=== PATIENT | female | born 1965 | race Caucasian/White ===

== ENCOUNTER → 2018-06-12 09:52 | Outpatient (CLI) | payer OTHER | END | disposition home or self-care (01) | LOC: D.RT 09:52 | DX: Z02.71 Encounter for disability determination (principal) ==

== ENCOUNTER 2019-07-28 15:32 | Emergency (ER) | payer MEDICAID ==
[~2019-07-28] VITALS: Ht 160 cm; Wt 50.9 kg
[2019-07-28 15:42] VITALS: BP 156/95; Ht 160 cm; Wt 50.9 kg
[2019-07-28] MEDS ORDERED: ALBUTEROL SULF8.5 GM INH (15:44)
[2019-07-28] MEDS ORDERED: KLONOPIN1 MG PO (15:44)
[2019-07-28] MEDS ORDERED: BUSPAR 15 MG TA15 MG PO (15:44)
[2019-07-28] MEDS ORDERED: MOBIC7.5 MG PO (15:45)
[2019-07-28] MEDS ORDERED: DILTIAZEM 24HR180 M4 PO (15:46)
[2019-07-28] MEDS ORDERED: ADVAIR HFA 230-12 GM INH (15:46)
[2019-07-28] MEDS ORDERED: ROBAXIN500 MG PO (15:47)
[2019-07-28] MEDS ORDERED: ATROVENT 0.02%2.5 ML UPD (15:47)
[2019-07-28] MEDS ORDERED: MACROBID100 MG PO (15:48)
[2019-07-28] MEDS ORDERED: MUPIROCIN22 GM TOPICAL (15:48)
[2019-07-28 16:16] LABS: EOSINOPHILS 0.8 % (0-7); HEMATOCRIT 36.8 % (36.0-48.0); HEMOGLOBIN 12.9 g/dL (12-16); IMMATURE GRANULOCYTES 0.2 % (0-5); LYMPHOCYTES 21.3 % (15-50); MCH 30.5 pg (26.0-34.0); MCHC 35.1 g/dL (31.0-37.0); MEAN PLATELET VOLUME 8.6 fL (7.4-10.4); NEUTROPHILS 58.7 % (40-80); PLATELET COUNT 224 10x3/uL (130-400); RBC 4.23 10x6/uL (4.00-5.40); RDW 16.3 % (11.5-14.5); WBC 4.9 10x3/uL (4.8-10.8)
[2019-07-28 16:30] LABS: ALBUMIN 3.5 g/dL (3.4-5.0); ALKALINE PHOSPHATASE 86 U/L (46-116); ALT (SGPT) 17 U/L (10-68); BILIRUBIN - TOTAL 0.44 mg/dL (0.2-1.3); CALC OSMOLALITY 263 mosm/kg (275-300); CALCIUM 8.8 mg/dL (8.5-10.1); CARBON DIOXIDE 28.6 mmol/L (21.0-32.0); CHLORIDE - SERUM 96 mmol/L (98-107); CREATININE - SERUM 0.5 mg/dL (0.6-1.3); GLUCOSE 90 mg/dL (74-106); POTASSIUM - SERUM 4.4 mmol/L (3.5-5.1); PROTEIN - SERUM 6.7 g/dL (6.4-8.2); SODIUM 133 mmol/L (136-145); UREA NITROGEN 8 mg/dL (7-18); eGFR NON AFRICAN AMERICAN > 90 mL/min (90-120)
[2019-07-28 16:39] LABS: APPEARANCE CLEAR (CLEAR); BILIRUBIN NEGATIVE (NEGATIVE); COLOR YELLOW (YELLOW); GLUCOSE NEGATIVE (NEGATIVE); KETONE NEGATIVE (NEGATIVE); NITRITE NEGATIVE (NEGATIVE); PROTEIN NEGATIVE (NEGATIVE); UROBILINOGEN NORMAL (NORMAL)
[2019-07-28 16:40] LABS: BACTERIA FEW /hpf (NEGATIVE); EPITHELIAL CELLS 0-5 /hpf (0-5); RED CELLS - URINE OCC /hpf (0-5); WHITE CELLS - URINE 0-5 /hpf (NEGATIVE)
== END 2019-07-28 18:43 | disposition home or self-care (01) ==
LOC: D.ER 15:32
PROVIDERS: Family Medicine
DX: N39.0 Urinary tract infection, site not specified (principal); I10 Essential (primary) hypertension

== ENCOUNTER 2019-08-15 08:00 | Outpatient (CLI) | payer MEDICAID ==
[2019-07-28 15:42] VITALS: BMI 19.8
[~2019-08-15 08:00] MED LIST: ADVAIR HFA 230-12 GM INH; ALBUTEROL SULF8.5 GM INH; ATROVENT 0.02%2.5 ML UPD; BUSPAR 15 MG TA15 MG PO; DILTIAZEM 24HR180 M4 PO; KLONOPIN1 MG PO; MACROBID100 MG PO; MOBIC7.5 MG PO; MUPIROCIN22 GM TOPICAL; ROBAXIN500 MG PO
== END 2019-08-15 23:59 | disposition home or self-care (01) ==
LOC: D.MAMMO 08:00
PROVIDERS: ATTEND Surgery
DX: N63.22 Unspecified lump in the left breast, upper inner quadrant (principal)

== ENCOUNTER 2020-04-02 19:39 | Emergency (ER) | payer MEDICAID ==
[~2020-04-02] VITALS: Ht 160 cm; Wt 54.1 kg
[2020-04-02 20:01] VITALS: Ht 160 cm; Wt 54.1 kg
[2020-04-02] MEDS ORDERED: DILTIAZEM 24HR240 M4 PO (20:03)
[2020-04-02] MEDS ORDERED: DOXYCYCLINE HY100 M2 PO (20:04)
[2020-04-02] MEDS ORDERED: EFFEXOR37.5 MG PO (20:05)
[2020-04-02 20:37] LABS: BASOPHILS 0.9 % (0-2); EOSINOPHILS 1.1 % (0-7); HEMATOCRIT 49.7 % (36.0-48.0); HEMOGLOBIN 17.6 g/dL (12-16); IMMATURE GRANULOCYTES 0.2 % (0-5); LYMPHOCYTES 27.4 % (15-50); MCH 33.6 pg (26.0-34.0); MCHC 35.4 g/dL (31.0-37.0); MCV 94.8 fL (80.0-100.0); MONOCYTES 10.3 % (2-11); NEUTROPHILS 60.1 % (40-80); PLATELET COUNT 215 10x3/uL (130-400); RBC 5.24 10x6/uL (4.00-5.40); RDW 13.9 % (11.5-14.5); WBC 8.1 10x3/uL (4.8-10.8)
[2020-04-02 20:56] LABS: CALC OSMOLALITY 261 mosm/kg (275-300); CALCIUM 9.3 mg/dL (8.5-10.1); CARBON DIOXIDE 29.4 mmol/L (21.0-32.0); CHLORIDE - SERUM 98 mmol/L (98-107); CREATININE - SERUM 0.7 mg/dL (0.6-1.3); GLUCOSE 86 mg/dL (74-106); INR 0.98 (0.85-1.17); POTASSIUM - SERUM 4.3 mmol/L (3.5-5.1); PROTIME 12.9 SECONDS (11.6-15.0); SODIUM 132 mmol/L (136-145); UREA NITROGEN 6 mg/dL (7-18); eGFR NON AFRICAN AMERICAN > 90 mL/min (90-120)
[2020-04-02 21:12] LABS: ALKALINE PHOSPHATASE 85 U/L (30-120); ALT (SGPT) 30 U/L (10-68); BILIRUBIN - TOTAL 0.34 mg/dL (0.2-1.3); CKMB 1.9 U/L (0.0-3.6); CREATINE KINASE 72 UL (21-215); PRO BNP 147 pg/mL (0-125); PROTEIN - SERUM 7.5 g/dL (6.4-8.2); TROPONIN-I < 0.017 ng/mL (0.000-0.060)
[2020-04-02 21:48] LABS: BILIRUBIN NEGATIVE (NEGATIVE); GLUCOSE NEGATIVE (NEGATIVE); KETONE NEGATIVE (NEGATIVE); NITRITE NEGATIVE (NEGATIVE); UROBILINOGEN NORMAL (NORMAL)
[2020-04-02] MEDS ORDERED: MUCINEX DM ER1 EAC1 PO (22:15)
[2020-04-02] MEDS ORDERED: TESSALON PERLE100 MG PO (22:17)
[2020-04-02 22:37] VITALS: BP 186/102
== END 2020-04-02 22:37 | disposition home or self-care (01) ==
LOC: D.ER 19:39
PROVIDERS: Family Medicine
DX: J06.9 Acute upper respiratory infection, unspecified (principal); R05 Cough; J44.9 Chronic obstructive pulmonary disease, unspecified; Z72.0 Tobacco use; I10 Essential (primary) hypertension; R06.02 Shortness of breath

== ENCOUNTER 2020-06-05 05:30 | Inpatient (IN) | payer MEDICAID ==
[~2020-06-05] VITALS: Ht 160 cm; Wt 51.4 kg
[2020-06-05] VITALS (7 sets, daily range): BP systolic 133–174; BP diastolic 55–94; Ht 160 cm; Wt 51.4 kg
[~2020-06-05 05:30] MED LIST changes: +DILTIAZEM 24HR240 M4 PO; +DOXYCYCLINE HY100 M2 PO; +EFFEXOR37.5 MG PO; +MUCINEX DM ER1 EAC1 PO; +TESSALON PERLE100 MG PO
[2020-06-05 06:29] LABS: BASOPHILS 0.8 % (0-2); EOSINOPHILS 0.8 % (0-7); HEMATOCRIT 48.2 % (36.0-48.0); HEMOGLOBIN 16.7 g/dL (12-16); IMMATURE GRANULOCYTES 0.2 % (0-5); LYMPHOCYTES 25.9 % (15-50); MCH 32.6 pg (26.0-34.0); MCHC 34.6 g/dL (31.0-37.0); MCV 94.1 fL (80.0-100.0); MEAN PLATELET VOLUME 9.3 fL (7.4-10.4); NEUTROPHILS 65.3 % (40-80); PLATELET COUNT 203 10x3/uL (130-400); RBC 5.12 10x6/uL (4.00-5.40); RDW 14.1 % (11.5-14.5); WBC 5.1 10x3/uL (4.8-10.8)
[2020-06-05 07:01] LABS: INR 0.87 (0.85-1.17); PROTIME 11.8 SECONDS (11.6-15.0)
[2020-06-05 07:02] LABS: APTT 26.5 SECONDS (22.8-39.4)
[2020-06-05 07:03] LABS: CALC OSMOLALITY 270 mosm/kg (275-300); CARBON DIOXIDE 31.7 mmol/L (21.0-32.0); CHLORIDE - SERUM 99 mmol/L (98-107); CREATININE - SERUM 0.7 mg/dL (0.6-1.3); D-DIMER-QUANTITATIVE 0.35 ug/mLFEU (0.20-0.54); GLUCOSE 95 mg/dL (74-106); POTASSIUM - SERUM 4.4 mmol/L (3.5-5.1); SODIUM 136 mmol/L (136-145); UREA NITROGEN 10 mg/dL (7-18); eGFR NON AFRICAN AMERICAN > 90 mL/min (90-120)
[2020-06-05 07:18] LABS: ALBUMIN 3.7 g/dL (3.4-5.0); ALKALINE PHOSPHATASE 82 U/L (30-120); ALT (SGPT) 25 U/L (10-68); BILIRUBIN - TOTAL 0.34 mg/dL (0.2-1.3); CKMB 2.4 U/L (0.0-3.6); CREATINE KINASE 99 UL (21-215); PROTEIN - SERUM 7.2 g/dL (6.4-8.2)
[2020-06-05 07:19] LABS: TROPONIN-I < 0.017 ng/mL (0.000-0.060)
--- NOTE | 2020-06-05 07:20 | NUR ---
PT SITTING UP ON BED. PT FAMILY MEMBER AT BEDSIDE. NO S/S OF ACUTE DISTRESS NOTED.
--- NOTE | 2020-06-05 08:11 | NUR ---
RT AT BEDSIDE FOR ABG
--- NOTE | 2020-06-05 11:23 | NUR ---
RECEIVED REPORT FROM HAYDE IN THE ED. PATIENT TO UNIT SOON.
--- NOTE | 2020-06-05 12:00 | NUR ---
PATIENT ARRIVED TO UNIT VIA WHEELCHAIR IN NO ACUTE DISTRESS. PATIENT ALERT/ORIENTED, AND AMBULATORY. PAITENT WITH 20 GAUGE IV TO LEFT FOREARM. ABLE TO ANSWER ALL QUESTIONS APPROPRIATELY. CALL LIGHT WIHTIN REACH. DENIES NEEDS. ICE WATER PROVIDED. IV AZITHROMCIN INFUSING AT THIS TIME.
[2020-06-05] MEDS ORDERED: TAMOXIFEN CITRA20 MG PO (12:22)
[2020-06-05] MEDS ORDERED: REMERON30 MG PO (12:24)
[2020-06-05] MEDS ORDERED: CYCLOBENZAPRINE10 MG PO (12:25)
[2020-06-05 13:18] LABS: CKMB 1.7 U/L (0.0-3.6); CREATINE KINASE 65 UL (21-215); TROPONIN-I < 0.017 ng/mL (0.000-0.060)
--- NOTE | 2020-06-05 17:09 | NUR ---
TELEMETRY APPLIED. NO DISTRESS. CONVERSING ON CELLPHONE.
[2020-06-05 21:23] LABS: CKMB 1.4 U/L (0.0-3.6); CREATINE KINASE 58 UL (21-215)
[2020-06-05 21:38] LABS: TROPONIN-I < 0.017 ng/mL (0.000-0.060)
[2020-06-06 01:54] LABS: BASOPHILS 0.2 % (0-2); EOSINOPHILS 0 % (0-7); HEMATOCRIT 41.6 % (36.0-48.0); HEMOGLOBIN 14.1 g/dL (12-16); IMMATURE GRANULOCYTES 0.2 % (0-5); LYMPHOCYTES 14.3 % (15-50); MCH 31.8 pg (26.0-34.0); MCHC 33.9 g/dL (31.0-37.0); MCV 93.9 fL (80.0-100.0); MEAN PLATELET VOLUME 8.9 fL (7.4-10.4); MONOCYTES 6.6 % (2-11); NEUTROPHILS 78.7 % (40-80); PLATELET COUNT 185 10x3/uL (130-400); RBC 4.43 10x6/uL (4.00-5.40); RDW 13.7 % (11.5-14.5); WBC 5.8 10x3/uL (4.8-10.8)
[2020-06-06 02:22] LABS: ALBUMIN 3.1 g/dL (3.4-5.0); ALKALINE PHOSPHATASE 62 U/L (30-120); ALT (SGPT) 19 U/L (10-68); BILIRUBIN - TOTAL 0.34 mg/dL (0.2-1.3); CALCIUM 8.8 mg/dL (8.5-10.1); CARBON DIOXIDE 31.4 mmol/L (21.0-32.0); CHLORIDE - SERUM 102 mmol/L (98-107); CKMB 1.1 U/L (0.0-3.6); CREATINE KINASE 46 UL (21-215); CREATININE - SERUM 0.6 mg/dL (0.6-1.3); MAGNESIUM - SERUM 1.9 mg/dL (1.8-2.4); POTASSIUM - SERUM 4.1 mmol/L (3.5-5.1); PROTEIN - SERUM 6.1 g/dL (6.4-8.2); SODIUM 139 mmol/L (136-145); UREA NITROGEN 9 mg/dL (7-18); eGFR NON AFRICAN AMERICAN > 90 mL/min (90-120)
[2020-06-06 02:23] LABS: CALC OSMOLALITY 279 mosm/kg (275-300); GLUCOSE 151 mg/dL (74-106); TROPONIN-I < 0.017 ng/mL (0.000-0.060)
[2020-06-06 04:32] VITALS: BP 178/86
[2020-06-06 09:08] VITALS: BP 163/78
--- NOTE | 2020-06-06 09:26 | NUR ---
AM MEDS GIVEN AT THIS TIME. INFORMED PT THAT SHE WOULD BE MOVED TO A DIFFERENT ROOM. PT UPSET BECAUSE SHE STATES THAT NOTHING WAS DONE FOR HER LAST NIGHT. WANTS TO GO HOME " WHERE SHE CAN BE BETTER CARE."
[2020-06-06] MEDS ORDERED: AZITHROMYCIN500 MG PO (10:58)
[2020-06-06] MEDS ORDERED: PREDNISONE10 MG PO (11:00)
--- NOTE | 2020-06-06 11:05 | NUR ---
[facility]
[2020-06-06] MEDS ORDERED: NICODERM CQ1 EAC3 TOPICAL (11:22)
--- NOTE | 2020-06-06 12:34 | NUR ---
PT AWAKE AND ORIENTED, I/V REMOVED TIP INTACT. TELEMETRY D/C. STATES HER FAMILY WILL BE HERE TO PICK HER UP WITHIN AN HOUR.
--- NOTE | 2020-06-06 13:08 | NUR ---
PT AWAKE AND OREINTED, ESCORTED OUT VIA WHEELCHAIR TO POV, FRIEND DRIVING.
== END 2020-06-06 13:08 | disposition home or self-care (01) | DRG 192 ==
LOC: D.ER 05:30 → D.MS 10:01 → D.M2 11:16
PROVIDERS: Family Medicine; ADMIT Emergency Medicine; ATTEND Emergency Medicine
DX: J44.1 Chronic obstructive pulmonary disease with (acute) exacerbation (principal); I10 Essential (primary) hypertension

== ENCOUNTER 2021-03-01 17:37 | Inpatient (IN) | payer BC ==
[~2021-03-01] VITALS: Ht 160 cm; Wt 60.5 kg
[~2021-03-01 17:37] MED LIST changes: +ATIVAN1 MG PO; +AZITHROMYCIN500 MG PO; +COLACE100 MG PO; +CYCLOBENZAPRINE10 MG PO; +FLUTICASONE PRO16 GM NASAL; +MUCINEX600 MG PO; +NICODERM CQ1 EAC3 TOPICAL; +PREDNISONE10 MG PO; +REMERON30 MG PO; +TAMOXIFEN CITRA20 MG PO
--- NOTE | 2021-03-01 19:30 | NUR ---
PT RECEIVED TO ROOM 2100 VIA WC AWAKE, ALERT. S/O AT BEDSIDE. NO DISTRESS NOTED. O2 SAT 90% ON RA PLACED ON 2L NC O2 SAT 93% ON 2 L NC. PT DENIES ANY NEEDS WILL CONTINUE TO MONITOR
--- NOTE | 2021-03-01 19:45 | NUR ---
20 GAUGE PIV PLACED TO LEFT FA X 1 STICK, PT TOLERATED WELL NO DISTRESS NOTED. WILL CONTINUE TO MONITOR
[2021-03-01] MEDS ORDERED: TESSALON PERLE100 MG PO (20:12)
[2021-03-01] MEDS ORDERED: ZYRTEC10 MG PO (20:12)
[2021-03-01] MEDS ORDERED: KLONOPIN1 MG PO ×2 (20:14→20:16)
[2021-03-01] MEDS ORDERED: BUSPIRONE HCL30 MG PO (20:14)
[2021-03-01] MEDS ORDERED: IPRAT-ALBUT 0.5-3 ML UPD (20:15)
[2021-03-01] MEDS ORDERED: METOPROLOL TART25 MG PO (20:19)
[2021-03-01] MEDS ORDERED: SPIRIVA RESPIMAT4 GM INH (20:20)
[2021-03-01] MEDS ORDERED: NICODERM CQ1 EAC2 TOPICAL (20:22)
--- NOTE | 2021-03-01 20:35 | NUR ---
PULM CONSULT CALLED TO DR LOUISE HE WILL SEE PT TOMORROW
[2021-03-01 20:52] VITALS: Ht 160 cm; Wt 60.5 kg
[2021-03-01 21:19] VITALS: BP 196/99
[2021-03-01 22:40] LABS: ALBUMIN 3.4 g/dL (3.4-5.0); ALKALINE PHOSPHATASE 74 U/L (30-120); ALT (SGPT) 22 U/L (10-68); BILIRUBIN - TOTAL 0.28 mg/dL (0.2-1.3); CALC OSMOLALITY 261 mosm/kg (275-300); CALCIUM 8.5 mg/dL (8.5-10.1); CARBON DIOXIDE 32.1 mmol/L (21.0-32.0); CHLORIDE - SERUM 96 mmol/L (98-107); CREATININE - SERUM 0.7 mg/dL (0.6-1.3); GLUCOSE 88 mg/dL (74-106); MAGNESIUM - SERUM 1.7 mg/dL (1.8-2.4); POTASSIUM - SERUM 3.9 mmol/L (3.5-5.1); PROTEIN - SERUM 6.5 g/dL (6.4-8.2); SODIUM 132 mmol/L (136-145); UREA NITROGEN 8 mg/dL (7-18); eGFR NON AFRICAN AMERICAN > 90 mL/min (90-120)
[2021-03-02] VITALS (7 sets, daily range): BP systolic 123–171; BP diastolic 62–85
[2021-03-02 05:11] LABS: BASOPHILS 2.1 % (0-2); EOSINOPHILS 2.1 % (0-7); HEMATOCRIT 43.2 % (36.0-48.0); HEMOGLOBIN 14.9 g/dL (12-16); IMMATURE GRANULOCYTES 0.2 % (0-5); LYMPHOCYTE ABS# 2.12 10x3/uL (1.18-3.74); LYMPHOCYTES 41.2 % (15-50); MCH 32.3 pg (26.0-34.0); MCHC 34.5 g/dL (31.0-37.0); MCV 93.7 fL (80.0-100.0); MEAN PLATELET VOLUME 9.3 fL (7.4-10.4); MONOCYTES 9.9 % (2-11); NEUTROPHIL ABS# 2.29 10x3/uL (1.56-6.13); NEUTROPHILS 44.5 % (40-80); PLATELET COUNT 201 10x3/uL (130-400); RBC 4.61 10x6/uL (4.00-5.40); RDW 13.4 % (11.5-14.5); WBC 5.2 10x3/uL (4.8-10.8)
[2021-03-02 05:24] LABS: CALC OSMOLALITY 271 mosm/kg (275-300); CALCIUM 8.8 mg/dL (8.5-10.1); CARBON DIOXIDE 30.3 mmol/L (21.0-32.0); CHLORIDE - SERUM 101 mmol/L (98-107); CREATININE - SERUM 0.6 mg/dL (0.6-1.3); GLUCOSE 89 mg/dL (74-106); PHOSPHOROUS 4.4 mg/dL (2.5-4.9); POTASSIUM - SERUM 4.3 mmol/L (3.5-5.1); SODIUM 137 mmol/L (136-145); eGFR NON AFRICAN AMERICAN > 90 mL/min (90-120)
[2021-03-02 05:28] LABS: MAGNESIUM - SERUM 2.2 mg/dL (1.8-2.4); UREA NITROGEN 11 mg/dL (7-18)
--- NOTE | 2021-03-02 07:40 | NUR ---
Sitting up in bed, awake/alert/oriented, T/R self ad tramaine, cont of B/B with BRPs per self ad tramaine, denies pain at this time, call light/phone/water within reach, no s/s of acute distress observed.
[2021-03-02 13:35] LABS: BILIRUBIN NEGATIVE (NEGATIVE); KETONE NEGATIVE (NEGATIVE); NITRITE NEGATIVE (NEGATIVE); UROBILINOGEN NORMAL mg/dL (< 2)
[2021-03-03 05:09] VITALS: BP 126/65
--- NOTE | 2021-03-03 07:00 | NUR ---
Sitting up in bed, awake/alert/oriented, T/R self ad tramaine, cont of B/B with BRPs per self ad tramaine, denies pain/other discomfort at this time, call light/phone/water within reach, no s/s of acute distress observed.
[2021-03-03 07:07] LABS: EOSINOPHILS 0.5 % (0-7); HEMATOCRIT 44.5 % (36.0-48.0); LYMPHOCYTE ABS# 0.75 10x3/uL (1.18-3.74); LYMPHOCYTES 17.9 % (15-50); MCHC 33.7 g/dL (31.0-37.0); MCV 94.9 fL (80.0-100.0); MEAN PLATELET VOLUME 9.3 fL (7.4-10.4); MONOCYTES 0.7 % (2-11); NEUTROPHIL ABS# 3.36 10x3/uL (1.56-6.13); NEUTROPHILS 79.9 % (40-80); PLATELET COUNT 191 10x3/uL (130-400); RBC 4.69 10x6/uL (4.00-5.40); RDW 13.3 % (11.5-14.5); WBC 4.2 10x3/uL (4.8-10.8)
[2021-03-03 07:27] LABS: CALC OSMOLALITY 271 mosm/kg (275-300); CALCIUM 8.9 mg/dL (8.5-10.1); CARBON DIOXIDE 27.4 mmol/L (21.0-32.0); CHLORIDE - SERUM 101 mmol/L (98-107); CREATININE - SERUM 0.7 mg/dL (0.6-1.3); MAGNESIUM - SERUM 1.8 mg/dL (1.8-2.4); POTASSIUM - SERUM 4.2 mmol/L (3.5-5.1); SODIUM 135 mmol/L (136-145); UREA NITROGEN 10 mg/dL (7-18); eGFR NON AFRICAN AMERICAN > 90 mL/min (90-120)
[2021-03-03 07:28] LABS: GLUCOSE 159 mg/dL (74-106); PHOSPHOROUS 1.8 mg/dL (2.5-4.9)
[2021-03-03 08:00] VITALS: BP 151/85
[2021-03-03 11:07] VITALS: BP 161/80
[2021-03-03 16:04] VITALS: BP 155/75
--- NOTE | 2021-03-03 18:55 | NUR ---
PT SITTINUP IN BED REQUESTS PRN KLONOPIN, REPORTS THE STEROIDS SHE IS ON ARE MAKING HER MORE ANXIOUS AND THAT SHE JUST HAD HER BREATHING TREATMENT AND THIS MADE HER MORE ANXIOUS DUE TO THE STEROIDS IN IT ALSO. DENIES ANY OTHER NEEDS OR ISSUES. NO DISTRESS NOTED. PRN KLONOPIN AND TYLENOL GIVEN PER PT REPORTS OF WHITNEY AFTER UD TREATMENT. WILL COTNINEU TO MONITOR
[2021-03-03 20:00] VITALS: BP 127/56
--- NOTE | 2021-03-03 22:50 | NUR ---
pt received to room 2139 via er stretcher accompanied by ED nurse, pt awake alert, SOB reports generalized weakness, fatigue and just not feeling well/ O2 sat 93-94% on 4 L NC. PIV to bilat hands infusing. VSS, afebrile call light in reach will continue to monitor
[2021-03-03 23:24] VITALS: BP 120/58
[2021-03-04 04:00] VITALS: BP 136/71
--- NOTE | 2021-03-04 06:30 | NUR ---
RECEIVED BEDSIDE REPORT, PATIENT AWAKE AND ALERT, TAKING BREATHING TREATMENT. NO CURRENT PAIN OR DISTRESS ACKNOWLEDGED.
[2021-03-04 07:04] LABS: BASOPHILS 0.1 % (0-2); EOSINOPHILS 0.1 % (0-7); HEMATOCRIT 43.8 % (36.0-48.0); HEMOGLOBIN 14.6 g/dL (12-16); IMMATURE GRANULOCYTES 0.4 % (0-5); LYMPHOCYTES 9.1 % (15-50); MCH 31.9 pg (26.0-34.0); MCHC 33.3 g/dL (31.0-37.0); MCV 95.6 fL (80.0-100.0); MEAN PLATELET VOLUME 9.7 fL (7.4-10.4); MONOCYTES 6.7 % (2-11); NEUTROPHIL ABS# 13.71 10x3/uL (1.56-6.13); NEUTROPHILS 83.6 % (40-80); PLATELET COUNT 210 10x3/uL (130-400); RBC 4.58 10x6/uL (4.00-5.40); RDW 13.7 % (11.5-14.5); WBC 16.4 10x3/uL (4.8-10.8)
[2021-03-04 07:26] VITALS: BP 146/75
--- NOTE | 2021-03-04 07:30 | NUR ---
RESIDENT SITTING UP IN BED. RESP EVEN AND UNLABORED. O2 95 ON RA. LUNG SOUNDS LOWER LEFT LOBE WITH SLIGHT CRACKLES. NO VOICED COMPLAINTS OF PAIN OR DISTRESS. NO COUGH NOTED. RESIDENT STATED SHE IS READY TO GO HOME. WILL CONTINUE TO MONITOR.
[2021-03-04 07:32] LABS: CALC OSMOLALITY 278 mosm/kg (275-300); CALCIUM 9.1 mg/dL (8.5-10.1); CARBON DIOXIDE 28.8 mmol/L (21.0-32.0); CHLORIDE - SERUM 102 mmol/L (98-107); CREATININE - SERUM 0.7 mg/dL (0.6-1.3); GLUCOSE 113 mg/dL (74-106); MAGNESIUM - SERUM 1.9 mg/dL (1.8-2.4); PHOSPHOROUS 3.3 mg/dL (2.5-4.9); POTASSIUM - SERUM 4.2 mmol/L (3.5-5.1); SODIUM 139 mmol/L (136-145); UREA NITROGEN 12 mg/dL (7-18); eGFR NON AFRICAN AMERICAN > 90 mL/min (90-120)
[2021-03-04 08:13] LABS: IMMUNOGLOBULIN A 153 mg/dL (87-352); IMMUNOGLOBULIN G 787 mg/dL (586-1602)
[2021-03-04] MEDS ORDERED: LEVOFLOXACIN500 MG PO (11:03)
[2021-03-04] MEDS ORDERED: SINGULAIR10 MG PO (11:05)
[2021-03-04] MEDS ORDERED: DALIRESP250 MCG PO (11:05)
[2021-03-04] MEDS ORDERED: FLORAJEN DIGES1 EACH PO (11:05)
[2021-03-04] MEDS ORDERED: PREDNISONE10 MG PO (11:07)
[2021-03-04 11:50] VITALS: BP 141/72
--- NOTE | 2021-03-04 12:05 | NUR ---
I have reviewed this patient and I concur with the Shift Assessment completed by the Licensed Practical Nurse today this shift.
--- NOTE | 2021-03-04 12:12 | MORECARE ---
CASE MANAGEMENT DISCHARGE SUMMARY PATIENT: TREVER DOWNEY UNIT: [id number] ADM DATE: 03/01/21 AGE: 55 : 69 SEX: F ROOM/BED: D2100 AUTHOR: REGGIE,DOC PHYSICIAN: REFERRING PHYSICIAN: ERNESTO SANDERS MD DATE OF SERVICE: 03/04/21 Case Management Discharge Planning Summary DCP REVIEW SUMMARY ANTICIPATED D/C DATE: 03/04/2021 EXPECTED LOS : 3 CASE STATUS: DCP Initiated INITIAL REVIEW: 03/01/2021 INITIAL REVIEWER: Katy Wilson FINAL DISCHARGE DISPOSITION: 01 : Home or Self Care (Routine Discharge) FINAL REVIEWER: Katy Wilson FINAL REVIEW DATE: 03/04/2021 DCP Focus Questions & Answers QUESTION: ANSWER : PATIENT: TREVER DOWNEY ENCOUNTER: [id number] MEDICAL RECORD#: [id number] ADMISSION DATE: 03/01/2021 DISCHARGE DATE: ATTENDING MD: : AGE: 55 MARITAL STATUS: X DC PLAN ID: [id number] FACILITY: [facility] PRINTED ON: 03/04/21 12:11 CT All edits/amendments must be made on the electronic document DICTATION DATE: 03/04/21 121 FRONT DESK ADMIN: LILLI 03/04/21 1211 RPT#: [id number] DC DATE: STATUS: ADM IN [facility] [address] [place] [address] END OF REPORT
--- NOTE | 2021-03-04 12:24 | MORECARE ---
CASE MANAGEMENT DISCHARGE SUMMARY PATIENT: TREVER DOWNEY UNIT: [id number] ADM DATE: 03/01/21 AGE: 55 : 69 SEX: F ROOM/BED: D.8904 AUTHOR: REGGIEDOC PHYSICIAN: REFERRING PHYSICIAN: ERNESTO SANDERS MD DATE OF SERVICE: 03/04/21 Case Management Discharge Planning Summary DCP REVIEW SUMMARY ANTICIPATED D/C DATE: 03/04/2021 EXPECTED LOS : 3 CASE STATUS: DCP Initiated INITIAL REVIEW: 03/01/2021 INITIAL REVIEWER: Katy Wilson FINAL DISCHARGE DISPOSITION: 01 : Home or Self Care (Routine Discharge) FINAL REVIEWER: Katy Wilson FINAL REVIEW DATE: 03/04/2021 DCP Focus Questions & Answers DCP Screen QUESTION: ANSWER High Risk Factors: : Hosp related to CHF, COPD, DM, End Stage Ds, CVA, CA DCP Evaluation QUESTION: ANSWER Patient's ability to cope with chronic illness : d. No chronic illness Family / Caregiver's ability to cope with chronic illness: : a. Adequate (ability to meet patient's medical needs, ensures patient attends medical appts.) Living Arrangements: : Home with Extended Family Baseline cognitive status: : Alert Medication Management: : Patient states can afford medications Pharmacy name(s): : [facility] Does Patient have transportation to get home and to follow-up medical appointments when discharged from the hospital? : Yes Would patient like to participate in any Care Coordination programs (if applicable): : Not applicable Does the patient have electricity at home? : Yes Does the patient have running water in their house? : Yes Equipment in use: : Nebulizer Equipment agency name and contact information: : [employer] Mental health screen: : No mental health history Problems identified by the patient regarding discharge: : None DCP Re-evaluation QUESTION: ANSWER Would patient like to participate in any Care Coordination programs (if applicable): : Not applicable PATIENT: TREVER DOWNEY ENCOUNTER: [id number] MEDICAL RECORD#: [id number] ADMISSION DATE: 03/01/2021 DISCHARGE DATE: ATTENDING MD: : AGE: 55 MARITAL STATUS: X DC PLAN ID: [id number] FACILITY: [facility] PRINTED ON: 03/04/21 12:24 CT All edits/amendments must be made on the electronic document DICTATION DATE: 03/04/21 122 EVENT SALES MANAGER: LILLI 03/04/21 1224 RPT#: [id number] DC DATE: STATUS: ADM IN [facility] [address] [place] [address] END OF REPORT
--- NOTE | 2021-03-04 12:36 | MORECARE ---
CASE MANAGEMENT DISCHARGE SUMMARY PATIENT: TREVER DOWNEY UNIT: [id number] ADM DATE: 03/01/21 AGE: 55 : 69 SEX: F ROOM/BED: D.2107 AUTHOR: REGGIE,DOC PHYSICIAN: REFERRING PHYSICIAN: ERNESTO SANDERS MD DATE OF SERVICE: 03/04/21 Case Management Discharge Planning Summary COMMENTS ENTERED DATE: 03/04/21 12:17 CT COMMENT TYPE: Discharge Planning REVIEWER: Katy Wilson MET WITH THE PATIENT AT THE BEDSIDE. HER SISTER IS PRESENT TO TRANSPORT TO HOME. THE PATIENT GAVE PERMISSION TO SPEAK WITH SISTER BEING PRESENT. SHE PLANS TO DISCHARGE TO HOME WITH NO HOME HEALTH SERVICES. SHE HAS A NEBULIZER AT HOME FROM [employer]. SHE IS PLEASED WITH [employer]'S SERVICE. CM EXPLAINED SHE MAY REQUIRE OXYGEN FOR HOME AT DISCHARGE. SHE DESIRES [facility]. PATIENT CHOICE FORM OBTAINED. NOTIFIED RESPIRATORY REGARDING O2 SATURATION READING. RESTING RM AIR SAT 93% O2 SAT IS 87% W/ EXERTION REAPPLY OXYGEN AND PLACE THE PATIENT ON 2/L O2 SAT IS 94%. TC TO [email or web address] [facility]. FAXED MD ORDER, O2 READING AND CLINICAL TO [phone]. ADVISED THE PATIENT. AWAIT DELIVERY. ONLY OTHER CONCERN VOICED WAS NEED FOR FOOD STAMPS. THEPATIENT IS COMPLETING THE APPLICATION ON LINE. SHE HAS ISSUE RELATED TO STIMULUS WITH EXHUSBAND. CM SUGGESTED SHE CONTACT THE IRS FOR GUIDANCE W/ RESOLUTION. DENIES ANY ADDITIONAL NEEDS. DCP REVIEW SUMMARY ANTICIPATED D/C DATE: 03/04/2021 EXPECTED LOS : 3 CASE STATUS: DCP Initiated INITIAL REVIEW: 03/01/2021 INITIAL REVIEWER: Katy Wilson FINAL DISCHARGE DISPOSITION: 01 : Home or Self Care (Routine Discharge) FINAL REVIEWER: Katy Wilson FINAL REVIEW DATE: 03/04/2021 DCP Focus Questions & Answers DCP Screen QUESTION: ANSWER High Risk Factors: : Hosp related to CHF, COPD, DM, End Stage Ds, CVA, CA DCP Evaluation QUESTION: ANSWER Patient's ability to cope with chronic illness : d. No chronic illness Family / Caregiver's ability to cope with chronic illness: : a. Adequate (ability to meet patient's medical needs, ensures patient attends medical appts.) Living Arrangements: : Home with Extended Family Baseline cognitive status: : Alert Medication Management: : Patient states can afford medications Pharmacy name(s): : [facility] [address] Does Patient have transportation to get home and to follow-up medical appointments when discharged from the hospital? : Yes Would patient like to participate in any Care Coordination programs (if applicable): : Not applicable Does the patient have electricity at home? : Yes Does the patient have running water in their house? : Yes Equipment in use: : Nebulizer Equipment agency name and contact information: : [email or web address] Mental health screen: : No mental health history Problems identified by the patient regarding discharge: : None DCP Re-evaluation QUESTION: ANSWER Would patient like to participate in any Care Coordination programs (if applicable): : Not applicable PATIENT: TREVER DOWNEY ENCOUNTER: [id number] MEDICAL RECORD#: [id number] ADMISSION DATE: 03/01/2021 DISCHARGE DATE: ATTENDING MD: SHELBY: AGE: 55 MARITAL STATUS: X DC PLAN ID: [id number] FACILITY: [facility] PRINTED ON: 03/04/21 12:36 CT All edits/amendments must be made on the electronic document DICTATION DATE: 03/04/21 1236 TILE MOLDER: LILLI 03/04/21 1236 RPT#: [id number] DC DATE: STATUS: ADM IN [facility] [address] [place] [address] END OF REPORT
--- NOTE | 2021-03-05 15:32 | MORECARE ---
CASE MANAGEMENT DISCHARGE SUMMARY PATIENT: TREVER DOWNEY UNIT: [id number] ADM DATE: 03/01/21 AGE: 55 : 69 SEX: F ROOM/BED: D.2102 AUTHOR: REGGIE,DOC PHYSICIAN: REFERRING PHYSICIAN: ERNESTO SANDERS MD DATE OF SERVICE: 03/05/21 Case Management Discharge Planning Summary COMMENTS ENTERED DATE: 03/04/21 12:17 CT COMMENT TYPE: Discharge Planning REVIEWER: Katy Wilson MET WITH THE PATIENT AT THE BEDSIDE. HER SISTER IS PRESENT TO TRANSPORT TO HOME. THE PATIENT GAVE PERMISSION TO SPEAK WITH SISTER BEING PRESENT. SHE PLANS TO DISCHARGE TO HOME WITH NO HOME HEALTH SERVICES. SHE HAS A NEBULIZER AT HOME FROM [employer]. SHE IS PLEASED WITH [employer]'S SERVICE. CM EXPLAINED SHE MAY REQUIRE OXYGEN FOR HOME AT DISCHARGE. SHE DESIRES [facility]. PATIENT CHOICE FORM OBTAINED. NOTIFIED RESPIRATORY REGARDING O2 SATURATION READING. RESTING RM AIR SAT 93% O2 SAT IS 87% W/ EXERTION REAPPLY OXYGEN AND PLACE THE PATIENT ON 2/L O2 SAT IS 94%. TC TO [employer] [facility]. FAXED MD ORDER, O2 READING AND CLINICAL TO [phone]. ADVISED THE PATIENT. AWAIT DELIVERY. ONLY OTHER CONCERN VOICED WAS NEED FOR FOOD STAMPS. THEPATIENT IS COMPLETING THE APPLICATION ON LINE. SHE HAS ISSUE RELATED TO STIMULUS WITH EXHUSBAND. CM SUGGESTED SHE CONTACT THE IRS FOR GUIDANCE W/ RESOLUTION. DENIES ANY ADDITIONAL NEEDS. DCP REVIEW SUMMARY ANTICIPATED D/C DATE: 03/04/2021 EXPECTED LOS : 3 CASE STATUS: DCP Initiated INITIAL REVIEW: 03/01/2021 INITIAL REVIEWER: Katy Wilson FINAL DISCHARGE DISPOSITION: 01 : Home or Self Care (Routine Discharge) FINAL REVIEWER: Katy Wilson FINAL REVIEW DATE: 03/04/2021 DCP Focus Questions & Answers DCP Screen QUESTION: ANSWER High Risk Factors: : Hosp related to CHF, COPD, DM, End Stage Ds, CVA, CA DCP Evaluation QUESTION: ANSWER Patient's ability to cope with chronic illness : d. No chronic illness Family / Caregiver's ability to cope with chronic illness: : a. Adequate (ability to meet patient's medical needs, ensures patient attends medical appts.) Living Arrangements: : Home with Extended Family Baseline cognitive status: : Alert Medication Management: : Patient states can afford medications Pharmacy name(s): : [facility] [address] Does Patient have transportation to get home and to follow-up medical appointments when discharged from the hospital? : Yes Would patient like to participate in any Care Coordination programs (if applicable): : Not applicable Does the patient have electricity at home? : Yes Does the patient have running water in their house? : Yes Equipment in use: : Nebulizer Equipment agency name and contact information: : [email or web address] Mental health screen: : No mental health history Problems identified by the patient regarding discharge: : None DCP Re-evaluation QUESTION: ANSWER Would patient like to participate in any Care Coordination programs (if applicable): : Not applicable PATIENT: TREVER DOWNEY ENCOUNTER: [id number] MEDICAL RECORD#: [id number] ADMISSION DATE: 03/01/2021 DISCHARGE DATE: 03/04/2021 ATTENDING MD: SHELBY: AGE: 55 MARITAL STATUS: X DC PLAN ID: [id number] FACILITY: [facility] PRINTED ON: 03/05/21 15:32 CT All edits/amendments must be made on the electronic document DICTATION DATE: 03/05/21 153 THIN FILM TECHNICIAN: LILLI 03/05/21 153 RPT#: [id number] DC DATE:03/04/21 STATUS: DIS IN [place] [id number] [place] [address] END OF REPORT
[2021-03-06 19:08] LABS: IMMUNOGLOBULIN E 39 IU/mL (6-495)
== END 2021-03-04 13:00 | disposition home or self-care (01) | DRG 202 ==
LOC: D.M2 17:37
PROVIDERS: Family Medicine; Internal Medicine Pulmonary Disease; ADMIT Family Medicine; ATTEND Family Medicine
DX: J20.9 Acute bronchitis, unspecified (principal); J44.1 Chronic obstructive pulmonary disease with (acute) exacerbation; J44.0 Chronic obstructive pulmonary disease with (acute) lower respiratory infection; F41.8 Other specified anxiety disorders; I10 Essential (primary) hypertension; F17.200 Nicotine dependence, unspecified, uncomplicated; J30.9 Allergic rhinitis, unspecified; K21.9 Gastro-esophageal reflux disease without esophagitis; Z85.3 Personal history of malignant neoplasm of breast

== ENCOUNTER → 2021-04-29 10:56 | Outpatient (CLI) | payer BC ==
[2021-03-01 20:52] VITALS: BMI 22.6
[~2021-04-29 10:56] MED LIST changes: +BUSPIRONE HCL30 MG PO; +DALIRESP250 MCG PO; +FLORAJEN DIGES1 EACH PO; +IPRAT-ALBUT 0.5-3 ML UPD; +LEVOFLOXACIN500 MG PO; +METOPROLOL TART25 MG PO; +NICODERM CQ1 EAC2 TOPICAL; +SINGULAIR10 MG PO; +SPIRIVA RESPIMAT4 GM INH; +ZYRTEC10 MG PO
== END | disposition home or self-care (01) ==
LOC: D.LAB 10:56
PROVIDERS: ATTEND Internal Medicine Pulmonary Disease
DX: J44.9 Chronic obstructive pulmonary disease, unspecified (principal)

== ENCOUNTER → 2021-05-05 10:13 | Outpatient (CLI) | payer BC ==
[2021-03-01 20:52] VITALS: BMI 22.6
== END | disposition home or self-care (01) ==
LOC: D.RT 10:00
PROVIDERS: ATTEND Internal Medicine Pulmonary Disease
DX: J44.9 Chronic obstructive pulmonary disease, unspecified (principal)